=== PATIENT | female | born 1970 | race Native Hawaiian/Other Pacific Islander ===

== ENCOUNTER 2020-06-22 10:13 | Emergency (ER) | payer OTHER ==
[2020-06-22 10:35] LABS: Bilirubin,Urine NEG (Negative); Blood,Urine SM (Negative); Color,Urine Yellow (Yellow); Mucus,Urine FEW /HPF; Protein,Urine <15 mg/dL mg/dL (Negative); Urobilinogen,Urine < 2.0 mg/dL (<2.0); WBC,Urine < 1.0 /HPF (0.0-6.0)
--- NOTE | 2020-06-22 10:46 | Emergency Department Report ---
ED Female HPI - General Chief complaint: Urogenital-Female Stated complaint: SOB/UTI Time Seen by Provider: 06/22/20 10:45 Source: patient Mode of arrival: Ambulatory Limitations: No Limitations - History of Present Illness Initial comments: 50-year-old female with no significant past medical history presents to the ER today complaining of UTI symptoms and shortness of breath. Patient states that she started with URI symptoms as well as dry cough and shortness of breath a little over a week ago. She states she went to urgent care where she was diagnosed with an ear infection and was prescribed amoxicillin. She was also given albuterol MDI as well as cough tablets for her symptoms. Patient states that she has trying to use the albuterol MDI as prescribed (2 puffs q4hs) as well as taking the cough medication but she states she does not feel like they are helping. She states she still continues to have dry cough and SOB (mainly when she takes deep breathes, she feels like she is not getting enough air and the causes her to cough). She denies any chest pain. She states her URI symptoms have resolved. She denies any fever. She states she did have out patient COVID 19 test done last week and it was positive. Patient states that she has been having urinary frequency since last week. She was concerned that she may have UTI from the amoxicillin she was prescribed by urgent care. She denies any dysuria, hematuria, urgency, abnormal vaginal discharge or itching, low abdominal pain or back pain. MD Complaint: other (UTI/SOB) - Related Data Previous Rx's Medication Instructions Recorded Last Taken Type Albuterol Mdi (or & Nicu Only) 2 puff IH QID PRN #8.5 gram 06/22/20 Unknown Rx [ProAir HFA Inhaler] Doxycycline Hyclate 100 mg PO BID #14 tablet. 06/22/20 Unknown Rx Allergies Allergy/AdvReac Type Severity Reaction Status Date / Time No Known Allergies Allergy Unverified 06/22/20 10:19 ED Review of Systems ROS: Stated complaint: SOB/UTI Other details as noted in HPI Comment: All other systems reviewed and negative Constitutional: denies: chills, fever Respiratory: cough, shortness of breath. denies: SOB with exertion, SOB at rest, stridor, wheezing Cardiovascular: denies: chest pain, palpitations Gastrointestinal: denies: abdominal pain, nausea, diarrhea Genitourinary: frequency. denies: urgency, dysuria, hematuria, discharge, abnormal menses Neurological: denies: headache, weakness, paresthesias Psychiatric: denies: anxiety, depression Hematological/Lymphatic: denies: easy bleeding, easy bruising ED Past Medical Hx - Past Medical History Previous Medical History?: No - Surgical History Past Surgical History?: No - Medications Home Medications: Home Medications Medication Instructions Recorded Confirmed Last Taken Type Albuterol Mdi (or & Nicu Only) 2 puff IH QID PRN #8.5 gram 06/22/20 Unknown Rx [ProAir HFA Inhaler] Doxycycline Hyclate 100 mg PO BID #14 tablet. 06/22/20 Unknown Rx ED Physical Exam - General Limitations: No Limitations General appearance: alert, in no apparent distress - Head Head exam: Present: atraumatic, normocephalic, normal inspection - Eye Eye exam: Present: normal appearance, PERRL, EOMI Pupils: Present: normal accommodation, irregular - ENT ENT exam: Present: normal exam, normal orophraynx, mucous membranes moist - Respiratory Respiratory exam: Present: normal lung sounds bilaterally, other (intermittent dry cough). Absent: respiratory distress - Cardiovascular Cardiovascular Exam: Present: regular rate, normal rhythm, normal heart sounds - GI/Abdominal GI/Abdominal exam: Present: soft. Absent: distended, tenderness - External exam: Present: normal external exam Speculum exam: Present: normal speculum exam, vaginal discharge (scant thin clear). Absent: cervical discharge, vaginal bleeding, foreign body, tissue, laceration - Extremities Exam Extremities exam: Present: normal inspection. Absent: pedal edema, calf tenderness - Back Exam Back exam: Present: normal inspection - Neurological Exam Neurological exam: Present: alert, oriented X3, CN II-XII intact - Psychiatric Psychiatric exam: Present: normal affect, normal mood - Skin Skin exam: Present: normal color ED Course Vital Signs 06/22/20 06/22/20 10:20 14:41 Temperature 98.3 F 98.1 F Pulse Rate 101 H 81 Respiratory 16 18 Rate Blood Pressure 145/76 131/75 [Right] O2 Sat by Pulse 99 97 Oximetry ED Medical Decision Making - Lab Data Result diagrams: 06/22/20 11:02 06/22/20 11:06 - EKG Data EKG shows normal: sinus rhythm Rate: normal - EKG Data Interpretation: no acute changes, normal EKG - Radiology Data Radiology results: report reviewed Findings [facility] [address] [place] [address] Cat Scan Report Signed Patient: MONIQUE OZUNA MR#: [id number] : 1970 Acct:[id number] Age/Sex: 50 / F ADM Date: 06/22/20 Loc: ED Attending Dr: Ordering Physician: VINAY PETERSON Date of Service: 06/22/20 Procedure(s): CT angio chest Accession Number(s): [id number] cc: VINAY PETERSON CTA CHEST WITH IV CONTRAST INDICATION: MAIN. TECHNIQUE: Axial CT images were obtained through the chest after injection of IV contrast. 3 plane MIP reconstructions were pro duced. All CT scans at this location are performed using CT dose reduction for ALARA by means of automated exposure control. COMPARISON: None available. FINDINGS: Pulmonary Arteries: No pulmonary emboli. Thoracic Aorta: No acute abnormality. Heart: Normal. Lungs: There are patchy subpleural consolidative changes within both lungs, greatest within the left lower lobe. There is relative sparing at the apices. Pleura: No pleural effusion. No pneumothorax. Lymph Nodes: No significant adenopathy. Additional Findings: None. Upper Abdomen: No acute findings. Skeletal Structures: No significant osseous abnormality. IMPRESSION: 1. No CT evidence for pulmonary embolism. 2. Mild, patchy subpleural consolidative changes bilaterally, greatest in the left lower lobe. These findings may be infectious/inflammatory in etiology, atypical infectious agents should be considered. Signer Name: Reyes Disla MD Signed: 06/22/2020 2:19 PM Workstation Name: [id number] Transcribed By: Dictated By: Reyes Disla MD Electronically Authenticated By: Reyes Disla MD Signed Date/Time: 06/22/201418 DD/ 16 TD/TT: - Medical Decision Making 1503 -- pt presented to ED c/o dry cough and SOB (mainly when taking deep breathes). She was dx with COVID 19 last week. She was prescribed amoxicillin for ear infection which she finished. She was also prescribed albuterol MDI and tessalon perles but does not feel like they are helping her symptoms. Pt was also concerned she may have UTI because she was having urinary frequency. Labs reviewed, d-dimer was elevated but remaining labs including trop/wet prep/UA unremarkable. EKG show nsl without any acute abnormality. CTA shows mild patchy subpleural consolidative changes bilaterally, left greater than right, findings may be infectious/inflammatory in etiology, atypical agents should be considered. But No PE. Pt currently resting comfortably, in no current distress. Her repeat VS were nl. She was ambulated in ED and O2 maintained at 97% on RA and pt had no c/o of feel ing SOB. At this time, there is no indication for further testing, admission or emergent consult. Discussed lab/ct results with patient. She will be started on oral antibiotics to cover for bacterial pneumonia, recommend she uses the albuterol MDI every 4hrs and continue tessalon perles and close follow up with her PCP. Informed her she will need to self quarantine at home for 2 weeks. I did discuss worsening s/s with her which require return to ED immediately. Pt expresses understanding of instructions and agrees with plan. Patient stable at this time for d.c Critical care attestation.: If time is entered above; I have spent that time in minutes in the direct care of this critically ill patient, excluding procedure time. ED Disposition Clinical Impression: Pneumonitis, COVID-19, Urinary frequency Disposition: DC-01 TO HOME OR SELFCARE Is pt being admited?: No Does the pt Need Aspirin: No Condition: Stable Instructions: Viral Pneumonia (ED), COVID-19, Acute Bronchitis (ED) Additional Instructions: Start the doxycyline and take all of it. Continue albuterol MDI inhaler 2 puffs every 4hrs. Continue the tessalon perles as needed for cough. Drink lots of fluids to maintain hydration. I recommend close follow up with PCP. Return to ED if difficulty breathing worsens, if you develop fever (100.5 or higher) , chest pain, vomiting. Prescriptions: Doxycycline Hyclate 100 mg PO BID #14 tablet.dr Gordon Pendleton (or & Nicu Only) [ProAir HFA Inhaler] 2 puff IH QID PRN #8.5 gram PRN Reason: Shortness Of Breath Referrals: BRENDA BARBOSA MD [Primary Care Provider] - 3-5 Days Time of Disposition: 14:57
[2020-06-22] MEDS ORDERED: methylPREDNISolone Sod Succinate 125 MG/2 ML INJ IM ONE (10:59)
[2020-06-22 11:13] LABS: Basophils % (Auto) 0.3 % (0.0-1.8); Eosinophils % (Auto) 0.2 % (0.0-4.3); Hematocrit 41.7 % (30.3-42.9); Hemoglobin 13.9 gm/dl (10.1-14.3); Lymphocytes # (Auto) 2.2 K/mm3 (1.2-5.4); Lymphocytes % (Auto) 35.1 % (13.4-35.0); Mean Corpuscular HGB Conc 33 % (30-34); Mean Corpuscular Volume 96 fl (79-97); Monocytes # (Auto) 0.5 K/mm3 (0.0-0.8); Monocytes % (Auto) 7.1 % (0.0-7.3); Platelet Count 243 K/mm3 (140-440); Red Blood Count 4.33 M/mm3 (3.65-5.03); Red Cell Distribution Width 12.6 % (13.2-15.2)
[2020-06-22 11:38] LABS: Alanine Aminotransferase 22 units/L (7-56); Albumin 4.1 g/dL (3.9-5); Blood Urea Nitrogen 10 mg/dL (7-17); Calcium 9.4 mg/dL (8.4-10.2); Hemolysis Index 30
[2020-06-22 11:41] LABS: BUN/Creatinine Ratio 25
[2020-06-22 11:45] LABS: HCG Qualitative,Urine Negative (Negative)
--- NOTE | 2020-06-22 14:23 | Cat Scan Report ---
CTA CHEST WITH IV CONTRAST INDICATION: MAIN. TECHNIQUE: Axial CT images were obtained through the chest after injection of IV contrast. 3 plane MIP reconstru ctions were produced. All CT scans at this location are performed using CT dose reduction for ALARA b y means of automated exposure control. COMPARISON: None available. FINDINGS: Pulmonary Arteries: No pulmonary emboli. Thoracic Aorta: No acute abnormality. Heart: Normal. Lungs: There are patchy subpleural consolidative changes within both lungs, greatest within the left lower lobe. There is relative sparing at the apices. Pleura: No pleural effusion. No pneumothorax. Lymph Nodes: No significant adenopathy. Additional Findings: None. Upper Abdomen: No acute findings. Skeletal Structures: No significant osseous abnormality. IMPRESSION: 1. No CT evidence for pulmonary embolism. 2. Mild, patchy subpleural consolidative changes bilaterally, greatest in the left lower lobe. These findings may be infectious/inflammatory in etiology, atypical infectious agents should be considered. Signer Name: Reyes Disla MD Signed: 06/22/2020 2:19 PM Workstation Name: [id number]
[2020-06-22 14:42] VITALS: BP 131/75
== END 2020-06-22 15:16 | disposition home or self-care (01) ==
LOC: ED 10:13
DX: U07.1 COVID-19 (principal); J12.89 Other viral pneumonia; R35.0 Frequency of micturition
CPT/HCPCS: 36415; 71275; 80053; 81001; 81025; 84484; 85025; 85379; 87210; 87591; 93005; 96372; 99284; J2930; Q9967